=== PATIENT | female | born 1975 | race African-American/Black ===

== ENCOUNTER 2019-09-22 20:32 | Emergency (ER) | payer OTHER ==
[~2019-09-22] VITALS: Ht 172.7 cm; Wt 72.6 kg
[~2019-09-22 20:32] MED LIST: AMOXICILLIN875 MG PO; CIPROFLOXACIN500 M1 PO; FLAGYL500 MG PO; NOHOMEMEDICATIONS; NORCO 5-325 TA1 EACH PO; TRINATE TABLET1 TAB PO; VENTOLIN HFA 1818 GM INH
[2019-09-22] MEDS ORDERED: EXCEDRIN MIGRA1 EAC1 PO (21:07)
[2019-09-22 21:50] LABS: URINE BILIRUBIN NEGATIVE (Negative); URINE BLOOD NEGATIVE (Negative); URINE CLARITY CLEAR; URINE COLOR YELLOW; URINE GLUCOSE-RANDOM* NEGATIVE (Negative); URINE KETONES NEGATIVE (Negative); URINE LEUKOCYTES-REFLEX NEGATIVE (Negative); URINE NITRITE-REFLEX NEGATIVE (Negative); URINE PROTEIN (DIPSTICK) NEGATIVE (Negative); URINE SPECIFIC GRAVITY 1.015 (1.005-1.035); URINE UROBILINOGEN 0.2 E.U./dl (0.2-1.0)
[2019-09-22 22:20] LABS: ABSOLUTE NEUTROPHILS 3.8 thou/uL (1.4-8.2); BASOPHILS 0.6 % (0.0-2.0); EOSINOPHILS 2.2 % (0.0-3.0); HEMATOCRIT 38.3 % (37.0-47.0); HEMOGLOBIN 12.6 gm/dL (12.0-15.0); LYMPHOCYTES 34.3 % (24.0-44.0); MCH 32.4 pg (26.0-34.0); MCHC 32.9 g/dL (28.0-37.0); MCV 98.3 fL (80.0-100.0); MONOCYTES 7.9 % (1.0-8.0); PLATELET COUNT 271 thou/uL (150-400); RBC 3.89 mil/uL (4.20-5.00); RDW 14.3 % (10.5-14.5); WBC 6.8 thou/uL (4.0-11.0)
[2019-09-22 22:26] LABS: POTASSIUM 3.4 mmol/L (3.5-5.1)
[2019-09-22 22:32] LABS: ALBUMIN 3.6 g/dL (3.4-5.0); TOTAL BILIRUBIN 0.4 mg/dL (<0.1-1.0); TOTAL PROTEIN 7.2 g/dL (6.4-8.2)
[2019-09-22] MEDS ORDERED: NORCO 5-325 TA1 EAC1 PO (22:32)
[2019-09-22 22:44] VITALS: BP 174/98
== END 2019-09-22 22:54 | disposition home or self-care (01) ==
LOC: ER 20:32
PROVIDERS: Physician Assistant
DX: S32.018A Other fracture of first lumbar vertebra, initial encounter for closed fracture (principal); S32.058A Other fracture of fifth lumbar vertebra, initial encounter for closed fracture; R10.84 Generalized abdominal pain; R19.7 Diarrhea, unspecified; M79.674 Pain in right toe(s); Z87.891 Personal history of nicotine dependence; W01.0XXA Fall on same level from slipping, tripping and stumbling without subsequent striking against object, initial encounter; Y93.89 Activity, other specified; Y92.89 Other specified places as the place of occurrence of the external cause; Y99.8 Other external cause status